=== PATIENT | female | born 1955 | race Caucasian/White ===

== ENCOUNTER 2021-11-14 08:52 | Emergency (ER) | payer MEDICARE, OTHER ==
[~2021-11-14] VITALS: Ht 157.5 cm; Wt 69.4 kg
[2021-11-14 10:22] LABS: Albumin, Blood 3.8 g/dL (3.4-5.0); Albumin/Globulin Ratio 1.1 (0.8-1.8); Bilirubin, Total 0.2 mg/dL (0.1-1.0); Bun/Creatinine Ratio 9.4 (12.0-20.0); Calcium, Blood 9.4 mg/dL (8.5-10.1); Creatinine, Blood 1.27 mg/dL (0.40-1.00); Globulin, Blood 3.5 g/dL (2.2-4.0); Potassium, Blood 4.1 mmol/L (3.5-5.5); Total Protein, Blood 7.3 g/dL (6.4-8.2)
[2021-11-14 10:25] LABS: BASOPHILS ABSOLUTE AUTO 0.08 K/mm3 (0.00-0.23); BASOPHILS PERCENT AUTO 1 % (0-2); EOSINOPHILS ABSOLUTE AUTO 0.21 K/mm3 (0.00-0.68); EOSINOPHILS PERCENT AUTO 2 % (0-6); Hematocrit 41.6 % (33.0-51.0); Hemoglobin 13.5 g/dL (11.5-16.0); IMMATURE GRAN ABSOLUTE AUTO 0.05 K/mm3 (0.00-0.10); IMMATURE GRAN PERCENT AUTO 1 % (0-1); LYMPHOCYTES ABSOLUTE AUTO 2.05 K/mm3 (0.84-5.20); LYMPHOCYTES PERCENT AUTO 19 % (21-46); MONOCYTES ABSOLUTE AUTO 0.55 K/mm3 (0.16-1.47); MONOCYTES PERCENT AUTO 5 % (4-13); Mean Corpuscular HGB 29.5 pg (26.0-34.0); Mean Corpuscular HGB Conc 32.5 g/dL (31.5-36.5); Mean Corpuscular Volume 91 fL (80-100); Mean Platelet Volume 8.8 fL (9.1-12.4); NEUTROPHILS ABSOLUTE AUTO 7.63 K/mm3 (1.96-9.15); NEUTROPHILS PERCENT AUTO 72 % (41-73); Platelet Count 350 K/mm3 (150-400); RDW Coefficient Variation 12.6 % (11.7-14.2); RDW Standard Deviation 41.5 fL (35.1-46.3); Red Blood Cell Count 4.57 M/mm3 (3.80-5.20); White Blood Cell Count 10.57 K/mm3 (4.00-11.30)
[2021-11-14 10:48] LABS: Source, Urine Clean Catch
[2021-11-14 11:07] LABS: Appearance, Urine Hazy (Clear); Bilirubin, Urine Neg (Neg); Blood, Urine 3+ (Neg); Color, Urine Yellow (P-Yellow); Glucose Qualitative, Urine Neg (Neg); Ketones, Urine 1+ (Neg); Leukocyte Esterase, Urine 1+ (Neg); Nitrite, Urine Neg (Neg); Protein, Urine 2+ (Neg); Urobilinogen, Urine NORM (Normal)
[2021-11-14 11:45] LABS: Bacteria Many /hpf; Squamous Epithelial Cells Few /hpf (Few)
[2021-11-14] MEDS ORDERED: CEPH500 PO (13:01)
[2021-11-15] MEDS ORDERED: KETO10 PO (12:54)
[2021-11-15] MEDS ORDERED: HYDR1TAB94 PO (13:41)
[2021-11-15] MEDS ORDERED: TAMS.4ER PO (13:41)
[2021-11-20] MEDS ORDERED: ACET500 PO (09:13)
[2021-11-20] MEDS ORDERED: ATEN25 PO (09:14)
[2021-11-20] MEDS ORDERED: BUPR150ER PO (09:14)
[2021-11-20] MEDS ORDERED: ANGELIQ 0.5 MG1 EACH PO (09:15)
[2021-11-20] MEDS ORDERED: EZET10 PO (09:16)
[2021-11-20] MEDS ORDERED: GABA100 PO (09:16)
[2021-11-20] MEDS ORDERED: OMEP20ER PO (09:18)
[2021-11-20] MEDS ORDERED: SPIR25 PO (09:19)
[2021-11-20] MEDS ORDERED: TRAM50 PO (09:20)
[2021-11-20] MEDS ORDERED: ZOLP10 PO (09:21)
== END 2021-11-14 13:45 | disposition home or self-care (01) ==
LOC: ER 08:52
PROVIDERS: Physician Assistant
DX: N12 Tubulo-interstitial nephritis, not specified as acute or chronic (principal); N20.1 Calculus of ureter; Z87.442 Personal history of urinary calculi
CPT/HCPCS: 36415; 74176; 80053; 81001; 85025; 87086; 96374; 96375; 99284-25; A9270; J0696; J1885; J2405

== ENCOUNTER 2021-11-15 10:50 | Emergency (ER) | payer MEDICARE, OTHER ==
[~2021-11-15] VITALS: Ht 157.5 cm; Wt 69.4 kg
[~2021-11-15 10:50] MED LIST: CEPH500 PO
[2021-11-15 11:33] LABS: BASOPHILS ABSOLUTE AUTO 0.05 K/mm3 (0.00-0.23); BASOPHILS PERCENT AUTO 1 % (0-2); EOSINOPHILS ABSOLUTE AUTO 0.17 K/mm3 (0.00-0.68); EOSINOPHILS PERCENT AUTO 2 % (0-6); Hematocrit 38.4 % (33.0-51.0); Hemoglobin 12.5 g/dL (11.5-16.0); IMMATURE GRAN ABSOLUTE AUTO 0.03 K/mm3 (0.00-0.10); IMMATURE GRAN PERCENT AUTO 0 % (0-1); LYMPHOCYTES ABSOLUTE AUTO 1.76 K/mm3 (0.84-5.20); LYMPHOCYTES PERCENT AUTO 20 % (21-46); MONOCYTES PERCENT AUTO 7 % (4-13); Mean Corpuscular HGB 29.7 pg (26.0-34.0); Mean Corpuscular HGB Conc 32.6 g/dL (31.5-36.5); Mean Corpuscular Volume 91 fL (80-100); Mean Platelet Volume 8.6 fL (9.1-12.4); NEUTROPHILS ABSOLUTE AUTO 6.34 K/mm3 (1.96-9.15); NEUTROPHILS PERCENT AUTO 71 % (41-73); Platelet Count 293 K/mm3 (150-400); RDW Coefficient Variation 12.7 % (11.7-14.2); RDW Standard Deviation 42.5 fL (35.1-46.3); Red Blood Cell Count 4.21 M/mm3 (3.80-5.20); White Blood Cell Count 8.95 K/mm3 (4.00-11.30)
[2021-11-15 11:47] LABS: Bun/Creatinine Ratio 8.9 (12.0-20.0); Creatinine, Blood 1.35 mg/dL (0.40-1.00); Potassium, Blood 4.2 mmol/L (3.5-5.5)
[2021-11-15] MEDS ORDERED: KETO10 PO (12:54)
[2021-11-15] MEDS ORDERED: HYDR1TAB94 PO (13:41)
[2021-11-15] MEDS ORDERED: TAMS.4ER PO (13:41)
== END 2021-11-15 14:15 | disposition home or self-care (01) ==
LOC: ER 10:50
PROVIDERS: Emergency Medicine
DX: N13.6 Pyonephrosis (principal); Z87.891 Personal history of nicotine dependence
CPT/HCPCS: 36415; 76770; 80048; 85025; J1885; J7030

== ENCOUNTER → 2022-04-01 | Outpatient (CLI) | payer MEDICARE, OTHER ==
[~2022-04-01] MED LIST changes: +ACET500 PO; +ANGELIQ 0.5 MG1 EACH PO; +ATEN25 PO; +BUPR150ER PO; +EZET10 PO; +GABA100 PO; +HYDR1TAB94 PO; +KETO10 PO; +OMEP20ER PO; +SPIR25 PO; +TAMS.4ER PO; +TRAM50 PO; +ZOLP10 PO
== END | disposition home or self-care (01) ==
LOC: LAB SHORT 17:34 → EDSTATUS 04-01 12:00 → LAB FUT 04-01 12:00
DX: R30.9 Painful micturition, unspecified (principal)
CPT/HCPCS: 87086

== ENCOUNTER 2022-04-16 09:07 | Day surgery (SDC) | payer MEDICARE, OTHER ==
[~2022-04-16] VITALS: Ht 157.5 cm; Wt 66.0 kg
--- NOTE | 2022-04-16 11:52 | NUR ---
PT SITTING IN RECLINER EATING LUNCH. RIGHT RADIAL TR BAND SITE SOFT NON-TENDER WITH NO HEMATOMA, NO PULSATILE BLEEDING AND WRIST BOARD IN PLACE. PT DENIES CHEST PAIN. CALL LIGHT IN REACH.
--- NOTE | 2022-04-16 12:18 | NUR ---
NO CHANGES TO R RAD TR BAND SITE. PT DENIES CHEST PAIN OR DIZZINESS. CALL LIGHT IN REACH.
--- NOTE | 2022-04-16 13:33 | NUR ---
8 CC OF AIR REMOVED OUT OF NOW DEFLATED RIGHT TR BAND OVER 10 MIN; NO PULSATILE BLEEDING, NO HEMATOMA, SOFT. DISCHARGE INSTRUCTIONS REVIEWED AND ALL QUESTIONS ANSWERED.
--- NOTE | 2022-04-16 14:40 | NUR ---
DEFLATED RIGHT TR BAND REMOVED AND POLYMEM PLACED OVER R RAD SITE WITH WRIST BOARD IN PLACE; NO HEMATOMA, NO PULSATILE BLEEDING, SOFT WITH WRIST BOARD IN PLACE. 20 IV DISCONTINUED FROM RIGHT AC WITH INTACT CANNULA. PT ESCORTED OUT VIA WHEELCHAIR ESCORT.
== END 2022-04-16 14:35 | disposition home or self-care (01) ==
LOC: MHTC 09:07
DX: I25.118 Atherosclerotic heart disease of native coronary artery with other forms of angina pectoris (principal); I12.9 Hypertensive chronic kidney disease with stage 1 through stage 4 chronic kidney disease, or unspecified chronic kidney disease; N18.9 Chronic kidney disease, unspecified; E78.2 Mixed hyperlipidemia; G47.33 Obstructive sleep apnea (adult) (pediatric); Z88.1 Allergy status to other antibiotic agents; Z87.891 Personal history of nicotine dependence; Z79.899 Other long term (current) drug therapy
CPT/HCPCS: 76937; 93454; 99152; 99153; C1769; C1887; C1894; J1644; J2250; J3010; J7030; J7040; Q9967

== ENCOUNTER 2022-05-05 09:52 | Day surgery (SDC) | payer MEDICARE, OTHER ==
[~2022-05-05] VITALS: Ht 160 cm; Wt 65.6 kg
--- NOTE | 2022-05-05 11:41 | NUR ---
REPORT FROM VANNESA ORDONEZ RN. PT AXOX4, ABLE TO AMUBLATE WITH STEADY GAIT AND REPOSITION SELF IN BED.
--- NOTE | 2022-05-05 12:22 | NUR ---
TOOK OVER CARE NO CHANGE. PATIENT ON PHONE WAITING FOR SURGERY
--- NOTE | 2022-05-05 17:56 | NUR ---
SHIFT SUMMARY: POD 0 RIGHT TOTAL HIP PATIENT CAME OUT FROM PACU TODAY 05/05/22 AT 1700. PATIENT IS A&OX4. VS ARE WNL AND IS ON RA. PATIENT REPORTS A / AT THIS TIME BUT REFUSES PAIN MEDICATIONS AT THIS TIME AND IS AWARE OF PRN PAIN MEDICATIONS. RIGHT HIP HAS AN AQUACEL THAT IS C/D/I. PATIENT DENIES NUMBNESS AND TINGLING TO EXTREMITIES. SHE IS ABLE TO MOVE FINGERS AND TOES. POLAR PACK IS IN PLACE ON RIGHT HIP. PATIENT IS TOLERATING SMALL AMOUNTS ON PO INTAKE. CALL LIGHT IS WITHIN REACH. PATIENT IS SITTING UP IN BED WATCHING TV. THE PLAN WILL BE TO HAVE PAIN MANAGED PO AND TO WORK WITH PT TOMORROW.
--- NOTE | 2022-05-06 03:17 | NUR ---
SHIFT SUMMARY A/OX4, 1P ASSIST WITH FWW AND GB. AMBULATING TO AND FROM BATHROOM THIS SHIFT. C/O MODERATE PAIN, MEDICATED PER EMAR. AQUACEL AND POLAR PACK TO R. HIP. VSS, NO ACUTE CHANGES AT THIS TIME. BED IN LOWEST POSITION WITH CALL LIGHT IN REACH. WILL CONTINUE TO MONITOR AND REPORT TO ONCOMING RN.
[2022-05-06 05:34] LABS: BASOPHILS ABSOLUTE AUTO 0.01 K/mm3 (0.00-0.23); BASOPHILS PERCENT AUTO 0 % (0-2); EOSINOPHILS PERCENT AUTO 0 % (0-6); Hematocrit 30.5 % (33.0-51.0); IMMATURE GRAN ABSOLUTE AUTO 0.06 K/mm3 (0.00-0.10); IMMATURE GRAN PERCENT AUTO 1 % (0-1); LYMPHOCYTES ABSOLUTE AUTO 1.16 K/mm3 (0.84-5.20); LYMPHOCYTES PERCENT AUTO 11 % (21-46); MONOCYTES ABSOLUTE AUTO 0.67 K/mm3 (0.16-1.47); MONOCYTES PERCENT AUTO 6 % (4-13); Mean Corpuscular HGB 30.2 pg (26.0-34.0); Mean Corpuscular HGB Conc 32.8 g/dL (31.5-36.5); Mean Corpuscular Volume 92 fL (80-100); Mean Platelet Volume 8.8 fL (9.1-12.4); NEUTROPHILS ABSOLUTE AUTO 8.59 K/mm3 (1.96-9.15); NEUTROPHILS PERCENT AUTO 82 % (41-73); Platelet Count 267 K/mm3 (150-400); RDW Coefficient Variation 11.7 % (11.7-14.2); RDW Standard Deviation 39.7 fL (35.1-46.3); Red Blood Cell Count 3.31 M/mm3 (3.80-5.20); White Blood Cell Count 10.49 K/mm3 (4.00-11.30)
[2022-05-06 05:49] LABS: Bun/Creatinine Ratio 14.8 (12.0-20.0); Calcium, Blood 8.8 mg/dL (8.5-10.1); Creatinine, Blood 1.08 mg/dL (0.40-1.00)
[2022-05-06] MEDS ORDERED: Percocet 5-3251 EACH PO (08:26)
[2022-05-06] MEDS ORDERED: XARELTO10 M4 PO (08:33)
[2022-05-06] MEDS ORDERED: ELIQUIS2.5 MG (08:45)
--- NOTE | 2022-05-06 09:30 | NUR ---
DISCHARGE NOTE: PATIENT WAS EDUCATED ON DISCHARGE INSTRUCTIONS. SHE VERBALIZED UNDERSTANDING OF INSTRUCTIONS. HARD PERSCRIPTION WAS PLACED IN INSTRUCTIONS FOLDER. PAIN IS MANAGED WITH PO PAIN MEDS. RIGHT KNEE HAS KOURTNEY WRAP AND AQUACEL THAT IS C/D/I. DENIES NUMBNESS AND TINGLING. PATIENT IS TOLERATING PO INTAKE AND IS VOIDING/PASSING GAS. SHE IS DRESSED AND HAS ITEMS IN THE ROOM GATHERED. IV WAS TAKEN OUT AND WNL. PATIENT WAS WHEELCHAIRED DOWN TO HER HUSBANDS CAR TO BE TAKEN HOME.
== END 2022-05-06 09:30 | disposition home or self-care (01) ==
LOC: ORSCMMR 09:52 → SURS 17:31 → ORSCMMR 05-06 09:30
PROVIDERS: Orthopaedic Surgery
PROC: 0SR90JZ Replacement of Right Hip Joint with Synthetic Substitute, Open Approach (ICD-10-PCS; principal; 2022-05-05 11:30)
DX: M16.11 Unilateral primary osteoarthritis, right hip (principal); N18.9 Chronic kidney disease, unspecified; I12.9 Hypertensive chronic kidney disease with stage 1 through stage 4 chronic kidney disease, or unspecified chronic kidney disease; K21.9 Gastro-esophageal reflux disease without esophagitis; F41.8 Other specified anxiety disorders; Z79.899 Other long term (current) drug therapy
CPT/HCPCS: 36415; 73502; 80048; 85025; 97110; 97112; 97161; A9270; C1776; J0171; J0690; J0735; J1100; J1170; J1885; J2250; J2370; J2405; J2704; J2765; J2795; J3010; J7120

== ENCOUNTER → 2022-07-21 | Outpatient (CLI) | payer MEDICARE, OTHER ==
[~2022-07-21] MED LIST changes: +ELIQUIS2.5 MG; +Percocet 5-3251 EACH PO; +XARELTO10 M4 PO
== END | disposition home or self-care (01) ==
LOC: LAB SHORT 14:14 → EDSTATUS 06-09 16:45 → LAB FUT 06-09 16:45
DX: N20.2 Calculus of kidney with calculus of ureter (principal)
CPT/HCPCS: 81050

== ENCOUNTER → 2023-01-19 | Outpatient (CLI) | payer MEDICARE, OTHER ==
[2023-01-19 20:01] LABS: Calcium, Urine 13.9 mg/dL (< 17.5); Calcium, Urine Calculation 152.9 mg/24hrs (42.0-353.0); Phosphorus, Urine 40.3 mg/dL (20.0-60.0)
[2023-01-19 20:18] LABS: Creatinine Urine 69.6 mg/dL (27.00-270.00); Microalbumin, Urine Quant. 5.12 mg/L (0.000-20.000); Protein, Urine Quantitative 10.2 mg/dL (0.0-11.9); Uric Acid, Urine 19.1 mg/dL (7.5-49.5)
== END | disposition home or self-care (01) ==
LOC: LAB SHORT 11:30 → LAB FUT 01-13 14:15
PROVIDERS: Internal Medicine Nephrology
DX: N18.30 Chronic kidney disease, stage 3 unspecified (principal); D63.1 Anemia in chronic kidney disease; N25.81 Secondary hyperparathyroidism of renal origin; E55.9 Vitamin D deficiency, unspecified; E78.00 Pure hypercholesterolemia, unspecified; D51.8 Other vitamin B12 deficiency anemias; D52.8 Other folate deficiency anemias; R76.9 Abnormal immunological finding in serum, unspecified; R94.5 Abnormal results of liver function studies; R94.6 Abnormal results of thyroid function studies
CPT/HCPCS: 81050; 82043; 82340; 82507; 82570; 83945; 84105; 84133; 84156; 84300; 84560

== ENCOUNTER 2023-05-17 11:54 | Day surgery (SDC) | payer MEDICARE, OTHER ==
[~2023-05-17] VITALS: Ht 157.5 cm; Wt 68.0 kg
[2023-05-17] MEDS ORDERED: ROSUVASTATIN CA10 MG PO (12:39)
[2023-05-17] MEDS ORDERED: Aspir 8181 MG PO (12:41)
--- NOTE | 2023-05-17 12:47 | NUR ---
05/17/23 1247 Carola Bond PATIENT DID GAVILYTE FOR PREP PER DR HOLT
[2023-05-17 15:31] VITALS: BP 108/82
--- NOTE | 2023-05-17 15:39 | NUR ---
05/17/23 1539 Audrey Rouse LATE ENTRY FOR TODAY PT C/O NAUSEA AND WAS GIVEN ZOFRAN 4MG IV. PT ALSO C/O OF ABDOMINAL BLOATING, RN EXPLAINED THAT THIS WAS GAS AND THAT SHE WOULD NEED TO PASS GAS FOR RELIEF. PATIENT VERBALIZES UNDERSTANDING. RN ASKED PATIENT IF SHE WOULD LIKE TO WALK AROUND AND PT STATES THAT SHE FEELS LIKE SHE NEEDS TO USE THE BATHROOM. PATIENT TAKEN TO THE BR. PT SPENT 20 MINUTES IN THE BR. RN CHECKED ON HER PERIODICALLY AND PT STATED THAT SHE WAS PASSING A LOT OF GAS. PT FINALLY CAME OUT OF BR AND GOT DRESSED. PT STATED THAT SHE FELT MUCH BETTER AFTER PASSING GAS.
== END 2023-05-17 14:31 | disposition home or self-care (01) ==
LOC: ORSCSDS 11:54
PROVIDERS: Internal Medicine Gastroenterology
PROC: 0DBN8ZX Excision of Sigmoid Colon, Via Natural or Artificial Opening Endoscopic, Diagnostic (ICD-10-PCS; principal; 2023-05-17 13:30)
PROC: 0DBM8ZX Excision of Descending Colon, Via Natural or Artificial Opening Endoscopic, Diagnostic (ICD-10-PCS; principal; 2023-05-17 13:30)
PROC: 0DB58ZX Excision of Esophagus, Via Natural or Artificial Opening Endoscopic, Diagnostic (ICD-10-PCS; principal; 2023-05-17 13:30)
DX: K21.00 Gastro-esophageal reflux disease with esophagitis, without bleeding (principal); Z12.11 Encounter for screening for malignant neoplasm of colon; K22.70 Barrett's esophagus without dysplasia; D12.5 Benign neoplasm of sigmoid colon; D12.4 Benign neoplasm of descending colon; F41.9 Anxiety disorder, unspecified; K63.89 Other specified diseases of intestine; K64.4 Residual hemorrhoidal skin tags; F32.A Depression, unspecified; I12.9 Hypertensive chronic kidney disease with stage 1 through stage 4 chronic kidney disease, or unspecified chronic kidney disease; N18.9 Chronic kidney disease, unspecified; E78.5 Hyperlipidemia, unspecified; G47.33 Obstructive sleep apnea (adult) (pediatric); G47.00 Insomnia, unspecified; Z87.891 Personal history of nicotine dependence; Z79.899 Other long term (current) drug therapy
CPT/HCPCS: 88305; J2405; J2704; J7120

== ENCOUNTER 2023-09-22 19:22 | Inpatient (IN) | payer MEDICARE, OTHER ==
[~2023-09-22] VITALS: Ht 160 cm; Wt 80.4 kg
[~2023-09-22 19:22] MED LIST changes: +Aspir 8181 MG PO; +ROSUVASTATIN CA10 MG PO
[2023-09-22 19:45] LABS: BASOPHILS ABSOLUTE AUTO 0.02 K/mm3 (0.00-0.23); BASOPHILS PERCENT AUTO 1 % (0-2); EOSINOPHILS PERCENT AUTO 0 % (0-6); Hematocrit 29.6 % (33.0-51.0); IMMATURE GRAN ABSOLUTE AUTO 0.04 K/mm3 (0.00-0.10); IMMATURE GRAN PERCENT AUTO 1 % (0-1); LYMPHOCYTES ABSOLUTE AUTO 0.38 K/mm3 (0.84-5.20); LYMPHOCYTES PERCENT AUTO 10 % (21-46); MONOCYTES ABSOLUTE AUTO 0.04 K/mm3 (0.16-1.47); MONOCYTES PERCENT AUTO 1 % (4-13); Mean Corpuscular HGB 30.8 pg (26.0-34.0); Mean Corpuscular HGB Conc 33.8 g/dL (31.5-36.5); Mean Corpuscular Volume 91 fL (80-100); Mean Platelet Volume 8.7 fL (9.1-12.4); NEUTROPHILS PERCENT AUTO 88 % (41-73); Platelet Count 185 K/mm3 (150-400); RDW Coefficient Variation 12.2 % (11.7-14.2); RDW Standard Deviation 40.8 fL (35.1-46.3); Red Blood Cell Count 3.25 M/mm3 (3.80-5.20); White Blood Cell Count 3.98 K/mm3 (4.00-11.30)
[2023-09-22 19:58] LABS: Albumin, Blood 2.7 g/dL (3.4-5.0); Albumin/Globulin Ratio 0.8 (0.8-1.8); Bilirubin, Total 0.6 mg/dL (0.1-1.0); Bun/Creatinine Ratio 10.6 (12.0-20.0); Calcium, Blood 8.2 mg/dL (8.5-10.1); Creatinine, Blood 1.13 mg/dL (0.40-1.00); Globulin, Blood 3.2 g/dL (2.2-4.0); Potassium, Blood 3.8 mmol/L (3.5-5.5); Total Protein, Blood 5.9 g/dL (6.4-8.2)
[2023-09-22 19:59] LABS: Source, Urine Clean Catch
[2023-09-22 20:03] LABS: Base Excess Venous -1.5 mmol/L; Bicarbonate Venous 23.5 mmol/L (24.0-30.0); PCO2 Venous 34.2 mmHg (38-42); pH Blood Venous 7.43 (7.34-7.37)
[2023-09-22 20:17] LABS: Appearance, Urine Hazy (Clear); Bilirubin, Urine Neg (Neg); Blood, Urine 5+ (Neg); Color, Urine Yellow (P-Yellow); Glucose Qualitative, Urine Neg (Neg); Ketones, Urine Neg (Neg); Leukocyte Esterase, Urine 2+ (Neg); Nitrite, Urine Neg (Neg); Protein, Urine 2+ (Neg); Specific Gravity, Urine 1.015 (1.003-1.022); Urobilinogen, Urine NORM (Normal)
[2023-09-22 20:39] LABS: Bacteria Mod /hpf; Hyaline Casts 0-2 /lpf (0-2); Squamous Epithelial Cells Few /hpf (Few)
[2023-09-22 21:02] LABS: Influenza A, PCR NEGATIVE (NEGATIVE); Influenza B, PCR NEGATIVE (NEGATIVE); Resp Syncytial Virus, PCR NEGATIVE (NEGATIVE); SARS-Cov-2 (COVID-19) PCR, MMC NEGATIVE (NEGATIVE)
[2023-09-22 23:30] VITALS: BP 90/53
[2023-09-22] MEDS ORDERED: SPIR50 PO (23:42)
[2023-09-22 23:45] VITALS: BP 80/40
[2023-09-23] VITALS (90 sets, daily range): BP systolic 49–102; BP diastolic 39–71
--- NOTE | 2023-09-23 03:45 | NUR ---
ASSUMPTION OF CARE PT ARRIVED TO ICU 6 AT 2323 VIA ER BED. PT TRANFERED TO ICU BED VIA SLIDER SHEET. PT ALERT, ABLE TO ANSWER QUESTIONS AND MAKE NEEDS KNOWN. PT HAS SHORT PERIODS OF CONFUSION, ONCE REORIENTED PT ORIENTED X4. HR 80-90'S SR, BP SOFT, SBP IN THE 80'S-90'S MAP LOW 60'S. RESIDENT CALLED, ORDER RECEIVED FOR 1L BOLUS OF NS. PT ON 2LPM VIA NC, OXYGEN SATURATION >95% PT UP TO BEDSIDE COMMODE TO VOID WITH SBA. PIV TO RIGHT FOREARM AND LEFT FOREARM. BED IN LOWEST POSITION, CALL LIGHT WITHIN REACH. CARE CONTINUES.
[2023-09-23 04:06] LABS: BASOPHILS ABSOLUTE AUTO 0.03 K/mm3 (0.00-0.23); BASOPHILS PERCENT AUTO 0 % (0-2); EOSINOPHILS PERCENT AUTO 0 % (0-6); Hemoglobin 9.3 g/dL (11.5-16.0); IMMATURE GRAN ABSOLUTE AUTO 0.08 K/mm3 (0.00-0.10); IMMATURE GRAN PERCENT AUTO 1 % (0-1); LYMPHOCYTES ABSOLUTE AUTO 0.46 K/mm3 (0.84-5.20); LYMPHOCYTES PERCENT AUTO 5 % (21-46); MONOCYTES ABSOLUTE AUTO 0.43 K/mm3 (0.16-1.47); MONOCYTES PERCENT AUTO 4 % (4-13); Mean Corpuscular HGB 30.9 pg (26.0-34.0); Mean Corpuscular HGB Conc 33.2 g/dL (31.5-36.5); Mean Corpuscular Volume 93 fL (80-100); NEUTROPHILS PERCENT AUTO 90 % (41-73); Platelet Count 191 K/mm3 (150-400); RDW Coefficient Variation 12.5 % (11.7-14.2); RDW Standard Deviation 42.5 fL (35.1-46.3); Red Blood Cell Count 3.01 M/mm3 (3.80-5.20)
[2023-09-23 04:26] LABS: Albumin, Blood 2.4 g/dL (3.4-5.0); Albumin/Globulin Ratio 0.8 (0.8-1.8); Bilirubin, Total 0.2 mg/dL (0.1-1.0); Bun/Creatinine Ratio 9.8 (12.0-20.0); Calcium, Blood 7.4 mg/dL (8.5-10.1); Creatinine, Blood 1.12 mg/dL (0.40-1.00); Globulin, Blood 3.1 g/dL (2.2-4.0); Potassium, Blood 3.9 mmol/L (3.5-5.5); Total Protein, Blood 5.5 g/dL (6.4-8.2)
--- NOTE | 2023-09-23 06:24 | NUR ---
SHIFT SUMMARY PT RESTING IN BED, ALERT AND ORIENTED X4, ABLE TO FOLLOW COMMANDS AND MAKE NEEDS KNOWN. HR 60-70'S NSR, BP SOFT, SBP 80-90'S, MAP >65. PT ON 2LPM VIA NC, OXYGEN SATURATION >95%. PT HAS COMPLAINED OF PAIN TWICE THIS SHIFT, MEDICATED PER EMAR. PT AMBULATES TO BEDSIDE COMMODE TO VOID WITH SBA. NO BM THIS SHIFT. PT HAS PIV TO RFA INFUSING NS AT 150MLS/HR, PIV TO LFA SL. BED IN LOWEST POSITION, CALL LIGHT WITHIN REACH. CARE CONTINUES.
--- NOTE | 2023-09-23 07:00 | NUR ---
ASSUMPTION OF CARE: ASSUMED CARE OF PATIENT WITH AQUILINO DUKE. PATIENT RESTING CALMLY IN HER BED. PATIENT CURRENTLY ON 4L PER REPORT OF DESATURATIONS DURING SLEEP. SPO2 AT 99% AND RR 18-20. NO SIGNS OF RESPIRATORY DISTRESS. SBPS CONTINUE TO RUN IN THE HIGH 80S TO 90S. MAPS MID-60S. NS INFUSING AT 150 MLS/HR.
--- NOTE | 2023-09-23 10:35 | NUR ---
"Spiritual Care| Pt. Request Pt. is sitting up in a chair and welcomes my visit. Pt. is pleasant. Facilitate a life review. Pt. displays evidence of awareness and engagement. Prayed with Pt. Pt. verbalized gratitude for the spiritual care visit and welcomed this chargeback specialist to return."
--- NOTE | 2023-09-23 14:22 | NUR ---
AFTERNOON BPS AND STATUS: PATIENT FINISHED FLUID BOLUS. PATIENT TOLERATED WELL. LUNG SOUNDS REMAIN CLEAR. PATIENT SPO2 99% ON ROOM AIR. DURING THE BOLUS, MAPS GREATER THAN OR EQUAL TO 65. POST THE BOLUS, PATIENT HAD A FEW MAPS <65 (59-64). PATIENT GIVEN NEW ORDER OF MIDODRINE. PATIENT CONTINUES TO BE ASYMPTOMATIC. PATIENT HAS HAD MINIMAL URINE OUTPUT COMPARED TO FLUID INTAKE. BLADDER SCAN REVEALED 73 ML IN THE BLADDER. PATIENT REQUESTING THE RESUMPTION OF HER HOME GAPABENTIN FOR NERVE PAIN. DISCUSSED ALL OF THE ABOVE WITH DR. DOWNING. NEW ORDER ENTERED FOR HOME GABAPENTIN.
--- NOTE | 2023-09-23 17:49 | NUR ---
SHIFT SUMMARY: NEURO: PATIENT ALERT AND ORIENTED THROUGHOUT THE SHIFT. PATIENT IS A RELIABLE HISTORIAN. HOWEVER, SOME STML NOTED. AT TIMES, PATIENT REQUIRED A REPEAT EXPLANATION. PATIENT ABLE TO EASILY FOLLOW DIRECTIONS AND MAKE NEEDS KNOWN. PATIENT REPORTS THAT SHE HAS SOME DISK DEGENERATION THAT CAUSES PAIN/NUMBNESS DOWN BILATERAL ARMS. PER DR. DOWNING, RESTARTED HOME NEURONTIN. ALSO ASSISTED WITH OOB ACTIVITY AND MEDICATED PER PRNS. CARDIAC: PATIENT CONTINUED TO HAVE LOW SBPS THROUGHOUT THE SHIFT. PATIENT'S MAPS PRIMARILY ABOVE 65. SOME MAPS 63-64. PATIENT ASYMPTOMATIC THROUGHOUT THE SHIFT. HR STABLE IN THE 70S. PATIENT UP TO THE BEDSIDE COMMODE WITHOUT DIZZINESS OR SHORTNESS OF BREATH. PATIENT STARTED ON PO MIDODRINE AND RECEIVED A ONE LITER BOLUS. RESPIRATORY: PATIENT STABLE ON RA THROUGHOUT THE SHIFT. SPO2 97-100%. NO DESATURATIONS THROUGHOUT THE SHIFT, WITH ACTIVITY OR REST. PATIENT REPORTS OBSTRUCTIVE SLEEP APNEA AT HOME FOR WHICH SHE USES AN ORAL DEVICE WITH SUCCESS. PATIENT INSTRUCTED ON INCENTIVE SPIROMETER. NOTED PATIENT USING IT INDEPENDENTLY IN THE ROOM. LUNGS CLEAR THROUGHOUT THE SHIFT. GI/: PATIENT REPORTS SOME URINARY FREQUENCY. PATIENT ABLE TO VOID WITHOUT DIFFICULTY. PATIENT VOIDS ABOUT 100 MLS/VOID. URINE IS DARK YELLOW WITHOUT SEDIMENT OR FOUL ODOR NOTED. POST VOID BLADDER SCAN WAS 73ML. PATIENT DENIES NAUSEA OR ABDOMINAL DISCOMFORT. PATIENT REPORTS DECREASED APPETITE SINCE THIS MOST RECENT ILLNESS STARTED. PSYCHSOCIAL: PATIENT CALM AND COOPERATIVE THROUGHOUT THE SHIFT. PATIENT RECEIVED PHONE CALLS FROM SISTER AND AMONG OTHER CALLS.
--- NOTE | 2023-09-23 21:16 | NUR ---
ASSUMPTION OF CARE BEDSIDE SHIFT REPORT RECEIVED FROM DAYSHIFT RN. PT UP IN BEDSIDE RECLINER. PT ALERT AND ORIENTED X4, ABLE TO AMNSWER QUESTIONS, FOLLOW COMMANDS, AND MAKE NEEDS KNOWN. HR 60-70'S NSR, SBP 80-90'S MAP LOW 60'S, ASYMPTOMATIC. PT ON RA, OXYGEN SATURATION >95%. PT DENIES PAIN OR SOB AT TIME OF ASSESSMENT. PIV TO RFA INFUSING NS AT 150MLS/HR. PIV TO LFA SL. PT UP TO BEDSIDE COMMODE TO VOID WITH SBA. CALL LIGHT WITHIN REACH. CARE CONTINUES.
[2023-09-24] VITALS (32 sets, daily range): BP systolic 80–128; BP diastolic 45–85
[2023-09-24 03:18] LABS: BASOPHILS ABSOLUTE AUTO 0.03 K/mm3 (0.00-0.23); BASOPHILS PERCENT AUTO 0 % (0-2); EOSINOPHILS ABSOLUTE AUTO 0.22 K/mm3 (0.00-0.68); EOSINOPHILS PERCENT AUTO 3 % (0-6); Hematocrit 26.3 % (33.0-51.0); Hemoglobin 8.5 g/dL (11.5-16.0); IMMATURE GRAN ABSOLUTE AUTO 0.02 K/mm3 (0.00-0.10); IMMATURE GRAN PERCENT AUTO 0 % (0-1); LYMPHOCYTES ABSOLUTE AUTO 2.12 K/mm3 (0.84-5.20); LYMPHOCYTES PERCENT AUTO 28 % (21-46); MONOCYTES ABSOLUTE AUTO 0.43 K/mm3 (0.16-1.47); MONOCYTES PERCENT AUTO 6 % (4-13); Mean Corpuscular HGB 30.5 pg (26.0-34.0); Mean Corpuscular HGB Conc 32.3 g/dL (31.5-36.5); Mean Corpuscular Volume 94 fL (80-100); Mean Platelet Volume 9.2 fL (9.1-12.4); NEUTROPHILS ABSOLUTE AUTO 4.87 K/mm3 (1.96-9.15); NEUTROPHILS PERCENT AUTO 63 % (41-73); Platelet Count 203 K/mm3 (150-400); RDW Coefficient Variation 12.9 % (11.7-14.2); RDW Standard Deviation 44.8 fL (35.1-46.3); Red Blood Cell Count 2.79 M/mm3 (3.80-5.20); White Blood Cell Count 7.69 K/mm3 (4.00-11.30)
[2023-09-24 03:53] LABS: Albumin, Blood 2.1 g/dL (3.4-5.0); Albumin/Globulin Ratio 0.7 (0.8-1.8); Bilirubin, Total 0.2 mg/dL (0.1-1.0); Bun/Creatinine Ratio 12.4 (12.0-20.0); Calcium, Blood 7.3 mg/dL (8.5-10.1); Creatinine, Blood 1.05 mg/dL (0.40-1.00); Potassium, Blood 3.5 mmol/L (3.5-5.5); Total Protein, Blood 5.1 g/dL (6.4-8.2)
--- NOTE | 2023-09-24 05:22 | NUR ---
SHIFT SUMMARY PT RESTING IN BED. ALERT AND ORIENTED, PT ABLE TO FOLLOW COMMANDS AND MAKE NEEDS KNOWN. HR 60-70'S NSR, SBP 80-90'S, MAP LOW 60'S ASYMPTOMATIC. PT ON RA AT BEGINNING OF SHIFT, SWITCHED TO 3LPM VIA NC WHILE SLEEPING TO MAINTAIN OXYGEN SATURATION >95%. PT COMPLAINED OF PAIN MULTIPLE TIMES THIS SHIFT, MEDICATED WITH ULTRAM AND TYLENOL PER EMAR. PT UP TO BEDSIDE COMMODE TO VOID WITH SBA. PIV TO RFA INFUSING LR AT 150MLS/HR, PIV TO LFA SL. BED IN LOWEST POSITION, CALL LIGHT WITHIN REACH. CARE CONTINUES.
--- NOTE | 2023-09-24 14:25 | NUR ---
TRANSFER TO U REPORT CALLED VIA PHONE. ALL QUESTIONS ANSWERED. PT TAKEN TO U 19 VIA WHEELCHAIR. ALL PT BELONGINGS TAKEN WITH PT.
--- NOTE | 2023-09-24 14:42 | NUR ---
TRANSFER: PT ARRIVED TO U 19 @1415 VIA WHEELCHAIR. PT ABLE TO TRANSFER VIA WHEECHAIR TO BED VIA ONE PERSON ASSIST. PT ALERT AND ORIENTED X4, ABLE TO FOLLOW COMMANDS AND MAKE NEEDS KNOWN. STRENGTH EQUAL BILATERALLY. BP STABLE, HR SR 60'S, AFEBRILE, SPO2 >98% ON RA. RESPIRATIONS EVEN AND UNLABORED. PULSES STRONG AND EQUAL THROGUHOUT. ABDOMEN SOFT, BOWEL SOUNDS X4 QUADRANTS. PT DENIES PAIN. PT ORIENTED TO ROOM AND CALL LIGHT SYSTEM, PT TO UPDATE ON TRANSFER. BED IN LOW, CALL LIGHT IN REACH.
--- NOTE | 2023-09-24 17:02 | NUR ---
SHIFT SUMMARY: NO ACUTE CHNAGES SINCE TRANSFER. PT REMAINS ALERT AND ORIENTED X4, BP AND HR STABLE, AFEBRILE, SP02 >98% ON ROOM AIR. PT MEDICATED X1 FOR PAIN. EDUCATION PROVIDED ON MEDICATIONS AND PLAN OF CARE. PT CURRENTLY SITTING IN BED WATCHING TV. BED IN LOW, CALL LIGHT IN REACH, WILL REPORT TO ONCOMING RN.
--- NOTE | 2023-09-24 22:40 | NUR ---
ASSUMPTION OF CARE THIS RN ASSUMED CARE AT 1915; REPORT FROM QUITA ROLLE. PT AWAKE IN THE ROOM, WATCHING TV. A&O X 4; PLEASANT AND COOPERATIVE WITH CARE. VSS. PT DENIES SOB, DIZZINESS, CP OR PRESSURE. PT AFEBRILE. PT REPORTS MILD PAIN "IN RIGHT SIDE/ABDOMNEN", STATES IT FEELS LIKE "SHARP, PINCHING" THAT "COMES AND GOES". PT DENIES OTHER PAIN. PT DENIES ISSUES VOIDING, DENIES PAIN OR BURNING WHILE VOIDING. DENIES BLOOD IN URINE. DENIES ANY CONCERNS OR ISSUES WITH BM. PT REPOSITIONING AND USING RESTROOM INDEPENDENTLY. CALL LIGHT IN REACH.
[2023-09-25 00:26] VITALS: BP 102/57
[2023-09-25 04:04] VITALS: BP 112/69
[2023-09-25 04:55] LABS: BASOPHILS ABSOLUTE AUTO 0.01 K/mm3 (0.00-0.23); BASOPHILS PERCENT AUTO 0 % (0-2); EOSINOPHILS PERCENT AUTO 0 % (0-6); Hematocrit 29.1 % (33.0-51.0); Hemoglobin 9.8 g/dL (11.5-16.0); IMMATURE GRAN ABSOLUTE AUTO 0.05 K/mm3 (0.00-0.10); IMMATURE GRAN PERCENT AUTO 1 % (0-1); LYMPHOCYTES PERCENT AUTO 10 % (21-46); MONOCYTES ABSOLUTE AUTO 0.27 K/mm3 (0.16-1.47); MONOCYTES PERCENT AUTO 4 % (4-13); Mean Corpuscular HGB 30.6 pg (26.0-34.0); Mean Corpuscular HGB Conc 33.7 g/dL (31.5-36.5); Mean Corpuscular Volume 91 fL (80-100); Mean Platelet Volume 8.9 fL (9.1-12.4); NEUTROPHILS ABSOLUTE AUTO 6.55 K/mm3 (1.96-9.15); NEUTROPHILS PERCENT AUTO 85 % (41-73); Platelet Count 277 K/mm3 (150-400); RDW Coefficient Variation 12.8 % (11.7-14.2); White Blood Cell Count 7.68 K/mm3 (4.00-11.30)
--- NOTE | 2023-09-25 05:19 | NUR ---
SHIFT SUMMARY PT A&O X4, PLEASANT AND COOPERATIVE WITH CARE. VSS T/O SHIFT. SBP 100 - 1 TEENS, HRR SR 60'S, PT AFEBRILE AND REMAINS ON RA. PT DENIES CP/PRESSURE, SOB, DIZZINESS OR LIGHTHEADNESS. PT UP TO RESTROOM WITH MINIMAL ASSISTANCE, MOSTLY CORD MANAGEMENT. PT VOIDING; DENIES BURNING, PAIN, OR BLOOD IN URINE. PT HAD BM X2. PT REPORTS STOOL IS "LOOSE, SMALL, BROWN" IN COLOR. DENIES CONCERNS, DOES REPORT "BRIGHT RED BLOOD ON TOILET PAPER'. PT DOES REPORT HEMORRHOIDS. PT C/O PAIN FROM RECENT STENT PLACEMENT AND GENERAL CHRONIC PAIN; MEDICATION PER EMAR. PT CURRENTLY RESTING, CALL LIGHT IN REACH. WILL UPDATE ONCOMING RN
[2023-09-25 05:45] LABS: Albumin, Blood 2.5 g/dL (3.4-5.0); Albumin/Globulin Ratio 0.7 (0.8-1.8); Bilirubin, Total 0.2 mg/dL (0.1-1.0); Bun/Creatinine Ratio 8.1 (12.0-20.0); Calcium, Blood 8.3 mg/dL (8.5-10.1); Creatinine, Blood 0.99 mg/dL (0.40-1.00); Globulin, Blood 3.6 g/dL (2.2-4.0); Potassium, Blood 3.7 mmol/L (3.5-5.5); Total Protein, Blood 6.1 g/dL (6.4-8.2)
[2023-09-25 08:04] VITALS: BP 111/90
[2023-09-25 12:51] VITALS: BP 116/59
[2023-09-25] MEDS ORDERED: HYDCOR10 PO (15:44)
[2023-09-25] MEDS ORDERED: MIDO5 PO (15:44)
[2023-09-25] MEDS ORDERED: VISBIOME 112.51 EACH PO (15:47)
--- NOTE | 2023-09-25 17:21 | NUR ---
DISCHARGE: PT D/C FROM [facility] 19 @1722 VIA WHEECHAIR. DISCHARGE INSTRUCTIONS AND EDUCATION PROVIDED TO PT AND . ALL BELONINGS WITH PT.
== END 2023-09-25 17:43 | disposition home or self-care (01) | DRG 698 ==
LOC: ER 19:22 → ICUE 22:10 → PCU 09-24 14:20
PROVIDERS: Emergency Medicine; Student in an Organized Health Care Education/Training Program; ADMIT Internal Medicine
DX: T83.592A Infection and inflammatory reaction due to indwelling ureteral stent, initial encounter (principal); A41.9 Sepsis, unspecified organism; G93.41 Metabolic encephalopathy; R65.20 Severe sepsis without septic shock; E27.40 Unspecified adrenocortical insufficiency; N39.0 Urinary tract infection, site not specified; G47.30 Sleep apnea, unspecified; G89.29 Other chronic pain; M54.9 Dorsalgia, unspecified; N20.0 Calculus of kidney; M19.90 Unspecified osteoarthritis, unspecified site; I12.9 Hypertensive chronic kidney disease with stage 1 through stage 4 chronic kidney disease, or unspecified chronic kidney disease; N18.31 Chronic kidney disease, stage 3a; R09.02 Hypoxemia; Z96.0 Presence of urogenital implants; Z96.641 Presence of right artificial hip joint; Z88.1 Allergy status to other antibiotic agents; Z88.8 Allergy status to other drugs, medicaments and biological substances; Z79.82 Long term (current) use of aspirin; Z87.891 Personal history of nicotine dependence; Z11.52 Encounter for screening for COVID-19; Z79.1 Long term (current) use of non-steroidal anti-inflammatories (NSAID); Z79.52 Long term (current) use of systemic steroids
CPT/HCPCS: 0241U; 36415; 74176; 80053; 80400; 81001; 82024; 82533; 82803; 83605; 83880; 84443; 85025; 87040; 87086; 93005; 93010; 96361; 96365; 97162; 97530; 99285-25; A9270; J0696; J0834; J1650; J1720; J2543; J7030; J7120

== ENCOUNTER → 2023-11-24 | Outpatient (CLI) | payer MEDICARE, OTHER ==
[~2023-11-24] MED LIST changes: +HYDCOR10 PO; +MIDO5 PO; +SPIR50 PO; +VISBIOME 112.51 EACH PO
[2023-11-24 19:08] LABS: Microalbumin, Urine Quant. <5.000 mg/L (0.000-20.000)
== END ==
LOC: LAB 13:00 → LAB SHORT 13:00
PROVIDERS: Internal Medicine Nephrology
DX: N18.30 Chronic kidney disease, stage 3 unspecified (principal); D63.1 Anemia in chronic kidney disease; N25.81 Secondary hyperparathyroidism of renal origin; E55.9 Vitamin D deficiency, unspecified; E78.00 Pure hypercholesterolemia, unspecified; R76.9 Abnormal immunological finding in serum, unspecified; R94.5 Abnormal results of liver function studies; R94.6 Abnormal results of thyroid function studies; D51.8 Other vitamin B12 deficiency anemias; D52.8 Other folate deficiency anemias; D50.9 Iron deficiency anemia, unspecified
CPT/HCPCS: 81050; 82043; 82570; 84156